=== PATIENT | female | born 1955 | race Two or more races ===

== ENCOUNTER 2017-07-16 14:29 | Emergency (ER) | payer MEDICAID ==
[~2017-07-16] VITALS: Ht 162.6 cm; Wt 99.8 kg
[2017-07-16 14:30] VITALS: BP 161/95
[2017-07-16] MEDS ORDERED: KETOROLAC TROMETHAMINE INJ 60 MG/2 ML VIAL IM ONE (15:00)
[2017-07-16] MEDS ORDERED: KETOROLAC TROMETHAMINE INJ 30 MG/ML VIAL ONE (15:07)
== END 2017-07-16 16:09 | disposition home or self-care (01) ==
LOC: ER 14:31
DX: M54.41 Lumbago with sciatica, right side (principal); E11.9 Type 2 diabetes mellitus without complications; G89.29 Other chronic pain; I10 Essential (primary) hypertension; Z86.73 Personal history of transient ischemic attack (TIA), and cerebral infarction without residual deficits; Z60.2 Problems related to living alone
CPT/HCPCS: A4606; J1885; Z7610